=== PATIENT | female | born 1940 | race Caucasian/White ===

== ENCOUNTER 2016-04-02 09:10 | Day surgery (SDC) | payer MEDICARE, OTHER ==
[~2016-04-02] VITALS: Ht 160 cm; Wt 75.0 kg
[2016-04-02] VITALS (7 sets, daily range): BP systolic 120–142; BP diastolic 64–77; PULSE 63–74; RESP 14–16; O2SAT 91–98
[~2016-04-02 09:10] MED LIST: DICY10CA56 PO; Sodium Chloride LOK Flush 10 mL Syringe IV PRN; fentaNYL-PF 50 mCg/mL 2 mL Inj IVPUSH PRN
[2016-04-02] MEDS ORDERED: CYAN250014 PO (09:48)
[2016-04-02] MEDS ORDERED: TRAZ-115 PO (09:48)
[2016-04-02] MEDS ORDERED: POLY17PO6 PO (09:48)
[2016-04-02] MEDS ORDERED: CITA10TA9 PO (09:48)
[2016-04-02] MEDS ORDERED: MULT1CAP33 PO (09:48)
[2016-04-02] MEDS ORDERED: MONT10TA20 PO (09:48)
[2016-04-02] MEDS ORDERED: PANT40TA3 PO (09:48)
[2016-04-02] MEDS ORDERED: MELA3TAB54 PO (09:48)
[2016-04-02] MEDS ORDERED: LUTE20TA PO (09:48)
[2016-04-02] MEDS ORDERED: ASCO100089 PO (09:48)
[2016-04-02] MEDS ORDERED: CA C1TAB87 PO (09:48)
[2016-04-02] MEDS ORDERED: POTA99TA21 PO (09:48)
[2016-04-02] MEDS ORDERED: LOSA50TA3 PO (09:48)
[2016-04-02] MEDS ORDERED: ATOR20TA PO (09:48)
[2016-04-02] MEDS ORDERED: FERR47.57 PO (09:48)
[2016-04-02] MEDS ORDERED: FISH1CAP15 PO (09:48)
[2016-04-02] MEDS ORDERED: CHOL500011 PO (09:48)
[2016-04-02] MEDS ORDERED: ASPI-973 PO (09:48)
[2016-04-02] MEDS ORDERED: SOLI5TAB2 PO (09:48)
[2016-04-02] MEDS: 0.9% Sodium Chloride 1,000 ML IV SCH ×2 (10:00→10:39)
--- NOTE | 2016-04-02 12:24 | ENDO ---
[address] [address] ENDOSCOPY PROCEDURE PATIENT: ZHANNA RICO : 1940 MR#: [id number] ADMIT: 04/02/2016 JOB ID: [id number] OPERATION: Esophagogastroduodenoscopy with biopsy and colonoscopy. PREOPERATIVE DIAGNOSIS(ES): Gastroesophageal reflux disease, diarrhea. POSTOPERATIVE DIAGNOSIS(ES): 1. Multiple gastric polyps seen in the body status post biopsy. 2. Abnormal mucosa, mildly erythematous, in the duodenum status post biopsy. 3. Mild nonerosive gastritis. 4. Sigmoid diverticulosis. 5. Colonoscopy stopped due to too much pain per the patient. ANESTHESIA: Fentanyl 125 mcg and Versed 5 mg IV administered. COMPLICATIONS: None. BLOOD LOSS: Minimal. DESCRIPTION OF PROCEDURE: After the risks and benefits were explained to the patient, informed consent was obtained. After anesthesia was administered, the upper endoscope was inserted into the mouth, intubating through the esophagus, stomach, and second portion of the duodenum, and the mucosa carefully examined. After the procedure ended, the scope was withdrawn and the procedure terminated. The colonoscope was then inserted from the rectum to the sigmoid and the mucosa carefully examined. The prep of the patient was excellent. The procedure was stopped because of too much pain during the procedure. FINDINGS: Upon inspection of the esophagus, the esophagus was normal, without masses, ulcers, or lesions. The Z-line was located 40 cm from incisors. Upon entering the stomach, there was mild nonerosive gastritis that was seen. Retroflexion showed no hiatal hernia. There were multiple gastric polyps seen in the body of the stomach. The duodenal bulb and first portion were noted, but there was abnormal mucosa within the second portion that was mildly erythematous which was biopsied. Biopsy was also taken in the antrum and body of the stomach, gastric polyp, and distal esophagus. Upon inspection of the anus, no masses, hemorrhoids, ulcers, or fissures that were seen. Throughout the entire examination, there was scattered sigmoid diverticulosis. During the procedure, the patient exhibited too much pain and requested a stop to the procedure. IMPRESSIONS: 1. Multiple gastric polyps. 2. Mild nonerosive gastritis. 3. Abnormal mucosa, slightly erythematous, in the duodenum status post biopsy. 4. Moderate sigmoid diverticulosis. 5. Colonoscopy stopped due to pain. RECOMMENDATIONS: 1. Await pathology results. 2. Repeat colonoscopy with anesthesia due to pain during the procedure for diarrhea.
--- NOTE | 2016-04-03 13:31 | PATH ---
SURGICAL PATHOLOGY Attending Physician:Emory Franklin MD CASE STATUS: Signed Out PATIENT NAME: ZHANNA RICO PID: [id number] : 1940 DATE COLLECTED:04/02/2016 16:01 SPECIMEN: 1: Duodenum, Biopsy 2: Stomach, Antrum, Biopsy 3: Gastric, Biopsy 4: Esophagus, Biopsy 5: Stomach, Polyp, Biopsy CLINICAL HISTORY: 1).DUODENUM BIOPSY 2).ANTRUM BIOPSY 3).GASTRIC BODY BIOPSY 4).DISTAL ESOPHAGUS BIOPSY 5).GASTRIC POLYP BIOPSY FINAL DIAGNOSIS: 1.DUODENUM BIOPSY: TUBULAR ADENOMA INVOLVING SMALL BOWEL MUCOSA. 2.GASTRIC ANTRUM BIOPSY: MILD CHRONIC GASTRITIS INVOLVING ANTRAL MUCOSA. Negative for evidence of Helicobacter. Negative for intestinal metaplasia. Negative for dysplasia and malignancy. Small fragment of small bowel also present within the specimen. 3.GASTRIC BODY BIOPSY: MILD SUPERFICIAL CHRONIC GASTRITIS INVOLVING FUNDIC MUCOSA. Negative for evidence of Helicobacter. Negative for intestinal metaplasia. Negative for dysplasia and malignancy. 4.DISTAL ESOPHAGUS BIOPSY: SQUAMOUS MUCOSA AND GASTRIC CARDIA-TYPE MUCOSA NEGATIVE FOR SPECIALIZED METAPLASIA OF MIKE' S-TYPE ESOPHAGUS. CHRONIC INFLAMMATION AND REACTIVE EPITHELIAL CHANGES. Negative for dysplasia and malignancy. Eosinophils are not increased. 5.GASTRIC POLYP BIOPSY: BENIGN FUNDIC GLAND POLYP, NEGATIVE FOR ATYPIA. ICD10 CODE K31.7 GROSS DESCRIPTION: The specimen is received in five formalin filled containers labeled with the patient's name. 1). The specimen is sublabeled "duodenum" and consists of a 0.4 x 0.3 x 0.3 CM portion of tissue which is entirely submitted in cassette 1A. 2). The specimen is sublabeled "antrum" and consists of 2 portions of tissue which aggregate to 0.3 x 0.3 x 0.2 CM. The specimen is entirely submitted in cassette 2A. 3). The specimen is sublabeled "gastric body" and consists of 2 portions of tissue which aggregate to 0.4 x 0.3 x 0.2 CM. The specimen is entirely submitted in cassette 3A. 4). The specimen is sublabeled "distal esophagus" and consists of a 0.3 x 0.2 x 0.2 CM portion of tissue which is entirely submitted in cassette 4A. 5). The specimen is sublabeled "gastric polyp" and consists of a 0.3 x 0.3 x 0.2 CM portion of tissue which is entirely submitted in cassette 5A. 04/02/2016 [facility] MICRO DESCRIPTION: See diagnosis. ICD-9 CODES: CPT CODES: 1: 23976 2: 57363 3: 65402 4: 02616 5: 16627 Electronically Signed Out Favian Alvarez MD [facility] [address], [place] [address] Technical component performed at [facility], [address], [place], [address]
[2016-05-26] MEDS ORDERED: OXYB10TA PO (13:18)
== END 2016-04-02 23:59 | disposition home or self-care (01) ==
LOC: END 09:10
PROVIDERS: ATTEND Internal Medicine Gastroenterology
DX: R19.7 Diarrhea, unspecified (principal); K20.9 Esophagitis, unspecified; K57.30 Diverticulosis of large intestine without perforation or abscess without bleeding; D13.1 Benign neoplasm of stomach; K29.50 Unspecified chronic gastritis without bleeding; K31.7 Polyp of stomach and duodenum; Z53.09 Procedure and treatment not carried out because of other contraindication; I10 Essential (primary) hypertension
CPT/HCPCS: 43239; 45378; 88305; 99153; G0500; J2250; J3010; J7030

== ENCOUNTER 2016-05-27 13:01 | Day surgery (SDC) | payer MEDICARE, OTHER ==
[~2016-05-27] VITALS: Ht 157.5 cm; Wt 74.0 kg
[~2016-05-27 13:01] MED LIST changes: +0.9% Sodium Chloride 1,000 ML IV SCH; +ASCO100089 PO; +ASPI-973 PO; +ATOR20TA PO; +CA C1TAB87 PO; +CHOL500011 PO; +CITA10TA9 PO; +CYAN250014 PO; +FERR47.57 PO; +FISH1CAP15 PO; +LOSA50TA3 PO; +LUTE20TA PO; +MELA3TAB54 PO; +MONT10TA20 PO; +MULT1CAP33 PO; +OXYB10TA PO; +PANT40TA3 PO; +POLY17PO6 PO; +POTA99TA21 PO; +SOLI5TAB2 PO; +TRAZ-115 PO
[2016-05-27 13:19] VITALS: BP 135/75; PULSE 95; RESP 16; O2SAT 96
[2016-05-27] MEDS ORDERED: Lactated Ringer's 1,000 ML IV SCH (13:44)
[2016-05-27] MEDS ORDERED: Ondansetron 2 mg/mL 2 mL Inj IVPUSH PRN (13:45)
[2016-05-27] MEDS ORDERED: MetoCLOpramide 5 mg/mL 2 mL Inj IVPUSH PRN (13:45)
== END 2016-05-27 23:59 | disposition home or self-care (01) ==
LOC: END 13:01
PROVIDERS: ATTEND Internal Medicine Gastroenterology
DX: R19.7 Diarrhea, unspecified (principal); Z53.8 Procedure and treatment not carried out for other reasons